=== PATIENT | female | born 1970 | race Caucasian/White ===

== ENCOUNTER 2022-04-09 19:48 | Emergency (ER) | payer BC | END 2022-04-09 23:11 | disposition home or self-care (01) | LOC: DL.ED 19:48 | DX: S93.491A Sprain of other ligament of right ankle, initial encounter (principal); Z88.2 Allergy status to sulfonamides; Z91.041 Radiographic dye allergy status; W10.9XXA Fall (on) (from) unspecified stairs and steps, initial encounter; Y93.01 Activity, walking, marching and hiking | CPT/HCPCS: 73610-RT; 99283 ==